=== PATIENT | female | born 1960 | race Caucasian/White ===

== ENCOUNTER → 2019-06-09 | Outpatient (CLI) | payer BC | END | disposition home or self-care (01) | LOC: ROC 05-22 11:56 | PROVIDERS: ATTEND Radiology Radiation Oncology | DX: C54.1 Malignant neoplasm of endometrium (principal) | CPT/HCPCS: 99214; G0463 ==

== ENCOUNTER → 2019-06-26 | Outpatient (CLI) | payer BC | END | disposition home or self-care (01) | LOC: ROC 08:17 | PROVIDERS: ATTEND Radiology Radiation Oncology | DX: C54.1 Malignant neoplasm of endometrium (principal); Z90.12 Acquired absence of left breast and nipple; Z85.3 Personal history of malignant neoplasm of breast | CPT/HCPCS: 99212; G0463 ==

== ENCOUNTER 2019-08-13 06:27 | Outpatient (CLI) | payer BC | END 2019-08-13 23:59 | disposition home or self-care (01) | LOC: ROC 06:27 | PROVIDERS: ATTEND Radiology Radiation Oncology | DX: C50.912 Malignant neoplasm of unspecified site of left female breast (principal); C54.1 Malignant neoplasm of endometrium; Z90.12 Acquired absence of left breast and nipple; Z88.2 Allergy status to sulfonamides; Z91.030 Bee allergy status | CPT/HCPCS: 99212; G0463 ==

== ENCOUNTER → 2019-09-11 | Outpatient (CLI) | payer BC | END | disposition home or self-care (01) | LOC: ROC 07:01 | PROVIDERS: ATTEND Radiology Radiation Oncology | DX: C54.1 Malignant neoplasm of endometrium (principal); C50.912 Malignant neoplasm of unspecified site of left female breast; Z90.12 Acquired absence of left breast and nipple; Z91.09 Other allergy status, other than to drugs and biological substances | CPT/HCPCS: 99212; G0463 ==